=== PATIENT | female | born 1985 | race Caucasian/White ===

== ENCOUNTER 2016-06-06 15:14 | Inpatient (IN) | payer OTHER ==
[~2016-06-06] VITALS: Ht 162.6 cm; Wt 107.5 kg
[~2016-06-06 15:14] MED LIST: DOCO200C5 PO
[2016-06-06] MEDS ORDERED: Lactated Ringer's 1,000 ML IV PRN (16:13)
[2016-06-06] MEDS ORDERED: Methylergonovine 0.2 mg/mL Inj IM PRN (16:15)
[2016-06-06] MEDS ORDERED: Oxytocin 10 Unit/mL Inj IM PRN (16:15)
[2016-06-06] MEDS ORDERED: Hemorrhage Kit, Post Partum XX ONE (16:15)
[2016-06-06] MEDS ORDERED: Oxytocin 30 Units/500 mL LR 30 UNITS in IV Premix 1 EACH IV PRN (16:15)
[2016-06-06] MEDS ORDERED: Carboprost 250 mCg/mL Inj IM PRN (16:15)
[2016-06-06] MEDS ORDERED: Sodium Chloride LOK Flush 10 mL Syringe IVFLUSH PRN (16:15)
[2016-06-06 16:28] LABS: Mean Corpuscular Hemoglobin 32.7 pg (27.0-35.0); Mean Corpuscular Volume 92.5 fL (81-100)
[2016-06-06] MEDS ORDERED: Lactated Ringer's 1,000 ML IV SCH (18:08)
[2016-06-06] MEDS ORDERED: Lactated Ringer's 500 ML IV ONE (18:08)
--- NOTE | 2016-06-06 18:08 | PCM.HPANE ---
Patient Data Date of Service: Jun 06, 2016 Surgeon Admitting Provider:John Andrews MD Attending Provider:John Andrews MD Primary Care Physician:Genna Macdonald MD Other Provider: Reason for Visit Term Labor Check TERM LABOR CHECK Ht/WT & BMI Body Mass Index Allergies Coded Allergies: No Known Allergies (Verified Allergy, Unknown, 07/18/14) Diabetes History Hx Diabetes?: No MRSA MRSA: No Medications Hypertension Medication: No Home Meds Incl Beta Shannon: No Reported Medications Docosahexanoic Acid ( Dha)200 Mg [id number] Mg PO AM 07/18/14 History History of ENT Problems?: No Hx of Heart Problems?: No Cardiovascular History: Positive for:: Hypertension (hx of htn with obesity which has been resolved) Denies:: Congestive Heart Failure Hx of Respiratory Problem?: No Respiratory History: Denies:: Tuberculosis Hx Neurologic Problems?: No Hx of GI Problems?: No Hx of Problems?: No Female Hx: Positive for:: Currently Hx Musculoskeletal Problems?: No Hx of Psycho/Social Problems?: No Hx Surgeries?: No (d/c age 15) Hx Any Other Health Problems?: No Hx Diabetes: No Other History/Comment Presents with possible gestational hypertension, SROM, 38w3d, . Hx Alcohol Use: No (none for months)Hx Substance Use: No Smoking Status: Never Smoker Stop/Bang Risk Assessment Category Category 1A: Patient has history of documented sleep apnea, and HAS NOT received any narcotic, sedative or anesthesia administration during this stay. Category 1B: Patient has history of documented sleep apnea, and HAS received any narcotic , sedative or anesthesia administration during this stay Category 2: Patient has SUSPECTED Obstructive Sleep Apnea, and HAS received any narcotic , sedative or anesthesia administration during this stay. Category 3: Patient has SUSPECTED Obstructive Sleep Apnea and HAS NOT received narcotic, sedative or anesthesia administration during this stay. Category 4: Outpatient in Procedural Areas with known sleep apnea or who screen positive for High Risk via the STOP/BANG questionnaire. Exam Exam General Appearance: Oriented X3 HEENT/AIRWAY: MP 2 Lungs: Clear to Auscultation Heart: Exam Unremarkable Meds/Labs/Diagnostics Labs Test 06/06/16 16:25 06/06/16 17:53 White Blood Count 7.8th/mm3 (3.8-10.1) Red Blood Count 4.25mil/mm3 (3.90-5.20) Hemoglobin 13.9g/dL (12.0-15.6) Hematocrit 39.3% (35.0-46.0) Mean Corpuscular Volume 92.5fL (81-100) Mean Corpuscular Hemoglobin 32.7pg (27.0-35.0) Mean Corpuscular Hemoglobin Concent 35.4% (32.0-37.0) Red Cell Distribution Width 12.7% (12.3-15.4) Platelet Count 192bil/L (150-400) Plan Impression Patient chart reviewed, patient interviewed and anesthestic plan with risks, benefits, and alternatives discussed, and informed consent obtained. ASA Physical Status: ASA2 Mod Systemic Disease Bene/Risks/Altern/Consents: Yes HP Complete Prior to Induction: Yes Nolan Galvez MD Jun 06, 2016 18:08
[2016-06-06] MEDS ORDERED: EPHEDrine Sulfate 50 mg/mL Inj IVPUSH PRN (18:10)
[2016-06-06] MEDS ORDERED: Atropine 1 mg/10 mL (Code) Syringe IVPUSH PRN (18:10)
[2016-06-06] MEDS ORDERED: fentaNYL 2 mCg/mL-Bupiv 0.125% 100 ML EPIDURAL SCH (18:10)
[2016-06-06] MEDS ORDERED: Ondansetron 2 mg/mL 2 mL Inj IVPUSH PRN (18:10)
[2016-06-07] MEDS ORDERED: Lactated Ringer's 1,000 ML IV SCH (00:21)
[2016-06-07] MEDS ORDERED: Measles-Mumps-Rubella Vaccine 0.5 mL Inj SUBQ ONE (00:25)
[2016-06-07] MEDS ORDERED: Benzocaine (Dermoplast) 20% 60 Gm Spray TOPICAL PRN (00:25)
[2016-06-07] MEDS ORDERED: Methylergonovine 0.2 mg/mL Inj IM PRN (00:25)
[2016-06-07] MEDS ORDERED: Hemorrhage Kit, Post Partum XX ONE (00:25)
[2016-06-07] MEDS ORDERED: Oxytocin 10 Unit/mL Inj IM PRN (00:25)
[2016-06-07] MEDS ORDERED: Oxytocin 30 Units/500 mL LR 30 UNITS in IV Premix 1 EACH IV PRN (00:25)
[2016-06-07] MEDS ORDERED: LANOlin HPA 7 Gm Ointment TOPICAL PRN (00:25)
[2016-06-07] MEDS ORDERED: Witch Hazel-Glycerin Pads TOPICAL PRN (00:25)
[2016-06-07] MEDS ORDERED: TdaP Vaccine 0.5 mL Inj IM ONE (00:25)
[2016-06-07] MEDS ORDERED: Carboprost 250 mCg/mL Inj IM PRN (00:25)
[2016-06-07] MEDS ORDERED: Influenza (Adult) Vaccine 0.5 mL Syringe IM ONE (00:25)
[2016-06-07] MEDS ORDERED: Sodium Chloride LOK Flush 10 mL Syringe IVFLUSH SCH (00:30)
[2016-06-07] MEDS: HYDROcodone-APAP 5-325 mg Tablet PO PRN ×2 (06:47→13:44)
[2016-06-07] MEDS ORDERED: Bupivacaine 0.5% 50 mL Inj ONE (09:00)
--- NOTE | 2016-06-07 18:57 | PCM.DIOB ---
Obstetrical Disch Instruction Dates of Hospitalization Date of Hospital Admission Jun 06, 2016 at 15:43 Providers Admitting Physician: John Andrews MD Primary Care Physician: Genna Macdonald MD Attending Physician: John Andrews MD Discharge Diagnosis Problems: (1) Active labor at term Status: Acute Diet Discharge Diet: No restrictions Activity Discharge Activity-General: Pelvic Rest for 6 weeks Dressing and Incisional Care Hygiene: May shower, Perineal care, Sitz bath, Dermoplast spray, Witch Karen pads, Ice Follow Up Plan Follow-up appointment: Weeks (Follow up in 6 weeks for checkup.) Call your provider for: Fever or Chills, Shortness of breath, Heavy vaginal bleeding, Red painful breasts John Andrews MD Jun 07, 2016 18:57
[2016-06-07] MEDS ORDERED: DOCU-41 PO (18:59)
[2016-06-07] MEDS ORDERED: HYDR-4003 PO (18:59)
[2016-06-07] MEDS ORDERED: IBUP-1827 PO (18:59)
--- NOTE | 2016-06-07 21:31 | PROG NOTE ---
[address] [address] PROGRESS NOTE PATIENT: MARLON DURAND : 1985 MR#: [id number] ADMIT: 06/06/2016 JOB ID: [id number] [facility] NOTE: TIME: 2355 hours on 06/06/2016 DATE: 06/06/2016 This patient was admitted to [facility] in early labor with spontaneous rupture of membranes at 38 and a half weeks along in her . She had Pitocin augmentation of labor and epidural for anesthesia and cervical progressive dilatation occurred. Subsequent artificial rupture of forebag was accomplished with return of additional clear fluid and intrauterine pressure catheter was placed to facilitate continued Pitocin augmentation. Labor progress further occurred during the active phase until ultimately complete cervical dilatation was achieved. Note good heart rate variability throughout. Once completely dilated, the patient learned to push gradually and head then began descending steadily. There were some heart rate drops consistent with umbilical cord stretch or compression, although with reasonable heart rate variability. Once , head then delivered followed directly by a nuchal arm and then shoulders, body and extremities. Baby was active and crying and vigorous and handed to mother for bonding. After a minute of delay, umbilical cord was clamped and cut. Cord blood was obtained for routine studies and placenta with membranes were ultimately expelled, intact. Placenta came rather readily although membranes came only gradually. Following delivery of placenta and membranes, intrauterine exam demonstrated no tissue of any kind, some intrauterine blood clots removed, and uterus then contracted well with ongoing massage plus intravenous Pitocin infusion. Overall blood loss was a little greater than average at 450 cc-500 cc, although uterus was well contracted, as described ultimately. Note that Betadine solution was used to cleanse the vulvovaginal region throughout the timeframe of placental and membrane delivery and intrauterine exam as well as during inspection and repair procedures. Only laceration was that of medium size midline perineal laceration that was then repaired with running stitch of 3-0 chromic suture in deep and then more superficial/subcuticular layers. Hemostasis was noted to be complete, there was no hematoma formation, skin edges were well approximated, and perineal support was good. At this point, uterus was remaining well contracted, bleeding was minimal, laceration had been well repaired, and patient was comfortable with epidural. was also doing well. Baby weighed 9 pounds 7 ounces. It certainly is anticipated that mother and baby will do very well during the timeframe. Marketing Sales Representative will follow large with blood sugars. We will need to keep in mind this occurrence of macrosomia if there is a future . Note also that we will need to keep in mind the gestational hypertension occurring towards the end of current , without specific sign or symptom of preeclampsia. We will track blood pressures during the timeframe, although I do not anticipate that antihypertensive medication will be needed as it was not needed in labor either.
--- NOTE | 2016-06-07 22:10 | DIS ---
[address] [address] DISCHARGE SUMMARY PATIENT: MARLON DURAND : 1985 MR#: [id number] ADMIT: 06/06/2016 JOB ID: [id number] DIS: 06/07/2016 DISCHARGE DIAGNOSES: 1. A 38.5 week , delivered. 2. Spontaneous rupture of membranes and early labor at admission. 3. Gestational hypertension. 4. macrosomia. PROCEDURES PERFORMED DURING HOSPITALIZATION: 1. Labor augmentation. 2. Epidural anesthesia. 3. Vaginal delivery. 4. Perineal laceration repair. HOSPITAL COURSE: The patient was admitted to [facility] on 06/06 on which day she underwent procedures as described. During the timeframe, the patient did well, with stable vitals, afebrile, without need for antihypertensive medication, ambulating and voiding, with reasonable bleeding and pain management. She handled baby well. She used pain medication for uterine cramping as well as perineal repair site, primarily ibuprofen, although a little bit of [place]. She was interested in discharge to home in the evening of the first day, and her request was granted. DISCHARGE PROGRAM: Patient will call p.r.n., yet otherwise she will follow up in six weeks for checkup. She will observe pelvic rest for six weeks. DISCHARGE MEDICATIONS: Ibuprofen, [place] and Colace. She will also use vitamin daily while nursing.
== END 2016-06-07 20:14 | disposition home or self-care (01) | DRG 775 ==
LOC: FBCO 15:14 → FBC 15:43
PROVIDERS: ADMIT Obstetrics & Gynecology; ATTEND Obstetrics & Gynecology
PROC: 10E0XZZ Delivery of Products of Conception, External Approach (ICD-10-PCS; principal; 2016-06-06)
PROC: 0KQM0ZZ Repair Perineum Muscle, Open Approach (ICD-10-PCS; 2016-06-06)
PROC: 10907ZC Drainage of Amniotic Fluid, Therapeutic from Products of Conception, Via Natural or Artificial Opening (ICD-10-PCS; 2016-06-06)
DX: O13.4 Gestational [pregnancy-induced] hypertension without significant proteinuria, complicating childbirth (principal); Z37.0 Single live birth; O70.1 Second degree perineal laceration during delivery; Z3A.38 38 weeks gestation of pregnancy

== ENCOUNTER 2016-12-10 03:23 | Emergency (ER) | payer OTHER ==
[~2016-12-10] VITALS: Ht 162.6 cm; Wt 84.1 kg
[~2016-12-10 03:23] MED LIST changes: +DOCU-41 PO; +HYDR-4003 PO; +IBUP-1827 PO
[2016-12-10 03:29] VITALS: BP 146/99; PULSE 98; RESP 16; O2SAT 98
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
[2016-12-10] MEDS ORDERED: Amoxicillin-Clav 875-125 mg Tablet PO ONE (04:10)
[2016-12-10] MEDS ORDERED: AMOX-364 PO (04:13)
== END 2016-12-10 04:30 | disposition home or self-care (01) ==
LOC: SED 03:30
DX: S51.851A Open bite of right forearm, initial encounter (principal); W50.3XXA Accidental bite by another person, initial encounter; Y93.89 Activity, other specified; Y92.238 Other place in hospital as the place of occurrence of the external cause; Y99.0 Civilian activity done for income or pay; I10 Essential (primary) hypertension
CPT/HCPCS: 36415; 86706; 87340; 99283; G0433

== ENCOUNTER → 2017-02-04 | Day surgery (SDC) | payer OTHER ==
[~2017-02-04] VITALS: Ht 162.6 cm; Wt 81.7 kg
[~2017-02-04] MED LIST changes: +0.9% Sodium Chloride 1,000 ML IV SCH; +AMOX-364 PO; +METF500T4 PO; +PREN-12 PO; +Sodium Chloride LOK Flush 10 mL Syringe IV PRN; +fentaNYL-PF 50 mCg/mL 2 mL Inj IVPUSH PRN
[2017-02-04 08:28] VITALS: BP 120/79; PULSE 103; RESP 14; O2SAT 96
[2017-02-04 09:03] VITALS: BP 118/62; PULSE 108; RESP 14; O2SAT 98
[2017-02-04 09:12] VITALS: BP 111/68; PULSE 106; RESP 14; O2SAT 98
--- NOTE | 2017-02-04 12:30 | ENDO ---
[address] [address] ENDOSCOPY PROCEDURE PATIENT: MARLON DURAND : 1985 MR#: [id number] ADMIT: 02/04/2017 JOB ID: [id number] TITLE OF OPERATION: Colonoscopy. PREOPERATIVE DIAGNOSIS(ES): Rectal bleeding. POSTOPERATIVE DIAGNOSIS(ES): External hemorrhoids. ANESTHESIA: Fentanyl 200 mcg, Versed 10 mg IV administered. COMPLICATIONS: None. BLOOD LOSS: Minimal. DESCRIPTION OF PROCEDURE: After the risks and benefits were explained to the patient, informed consent was obtained. After anesthesia was administered, the colonoscope was inserted from the rectum to the cecum and the mucosa carefully examined. Prep of the patient was fair. After the procedure was done, the scope was withdrawn and the procedure terminated. FINDINGS: Upon inspection of the anus, there was an external hemorrhoid that was seen. No other masses or ulcers were seen. Throughout the entire examination no polyps, masses, or lesions. Retroflexion showed a protruding external hemorrhoid. IMPRESSION: External hemorrhoid. RECOMMENDATIONS: 1. Follow up with General Surgery as an outpatient. 2. Follow up in GI Clinic as needed.
== END | disposition home or self-care (01) ==
LOC: END 01:01
PROVIDERS: ATTEND Internal Medicine Gastroenterology
DX: K64.8 Other hemorrhoids (principal); K62.5 Hemorrhage of anus and rectum; E11.9 Type 2 diabetes mellitus without complications; Z79.84 Long term (current) use of oral hypoglycemic drugs; Z79.899 Other long term (current) drug therapy
CPT/HCPCS: 45378; 99153; G0500; J2250; J3010; J7030